=== PATIENT | male | born 1995 | race Caucasian/White ===

== ENCOUNTER 2020-12-16 22:12 | Emergency (ER) | payer SELFPAY ==
--- NOTE | ~2020-12-16 | XR_ITS ---
EXAMINATION: XR elbow RT 2V INDICATION: Right elbow pain TECHNIQUE: Two views of the right elbow are obtained. COMPARISON: None available FINDINGS: There is no fracture, dislocation, or subluxation. The bones, soft tissues, and joint space s are normal. IMPRESSION: 1. No acute osseous abnormality. Reviewed, dictated and finalized at location A. [employer]
[2020-12-16 22:14] VITALS: BP 111/91; PULSE 71; RESP 16; TEMP 36.7; O2SAT 98
--- NOTE | 2020-12-16 22:23 | ED.UPPEXIN ---
HPI - Extremity Injury (Upper) General Chief Complaint: Extremity Injury, Upper Stated Complaint: fall Time Seen by Provider: 12/16/20 22:22 Source: patient and EMS Mode of arrival: EMS History of Present Illness HPI narrative: Patient is 25 years old white male slipped on a wet floor, fell backward and broke his fall by his right elbow. Patient denies other injuries. Prior to arrival. At work. Review of Systems Review of Systems: Narrative: CONSTITUTIONAL: Denies fever, chills, or sweats. EYES: Denies visual changes, redness, or discharge. ENT: Denies rhinorrhea, congestion, sore throat, or otalgia. CARDIOVASCULAR: Denies chest pain, palpitations, or edema. RESPIRATORY: Denies cough or dyspnea. GASTROINTESTINAL: Denies abdominal pain, nausea, vomiting, or diarrhea. GENITOURINARY: Denies dysuria or hematuria. SKIN: Denies rash or itching. MUSCULOSKELETAL: Denies back pain, joint pain, or myalgia. NEUROLOGIC: Denies headache, numbness, or weakness. PSYCHIATRIC: Denies anxiety or depression. Exam Narrative: Exam Narrative: General appearance: Well-developed, well-nourished Skin: Normal color Head: Normocephalic, nontraumatic Neck: Supple, nontender Chest and respiratory: Airway patent, no respiratory distress, no accessory muscle use Heart: Regular rate/rhythm Vascular: Normal peripheral pulses, normal capillary refill. Musculoskeletal: Right elbow exam showed contusion posteriorly, severe limited range of motion, no deformity. 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, no gross motor deficit Course Course Emergency Course: Stable Vital Signs Vital signs: Vital Signs Temperature 36.7 C 12/16/20 22:14 Pulse Rate 71 12/16/20 22:14 Respiratory Rate 16 12/16/20 22:14 Blood Pressure 111/91 H 12/16/20 22:14 Pulse Oximetry 98 12/16/20 22:14 Temperature 36.7 C 12/16/20 22:14 Pulse Rate 71 12/16/20 22:14 Respiratory Rate 16 12/16/20 22:14 Blood Pressure 111/91 H 12/16/20 22:14 Pulse Oximetry 98 12/16/20 22:14 MDM - Extremity Injury (Upper) MDM Narrative Medical decision making narrative: Right elbow traumatic pain, x-ray ordered, further plan to follow Imaging Data My impression: No fracture or dislocation of the right elbow Critical Care Time Critical Care Time Critical Care Time: No Discharge Plan Discharge Clinical Impression: Contusion of elbow, right Qualifiers: Encounter type: subsequent encounter Qualified Code(s): S50.01XD - Contusion of right elbow, subsequent encounter Patient Disposition: Home, Self-Care Condition: Stable Instructions: Contusion in Adults (ED) Additional Instructions: Return if symptoms are worsening , call your family physician for appointment, take Tylenol as as needed for aches and pain, continue home medications. Take ibuprofen 600 every 6 hours as needed for pain. Off work today Stand Alone Forms: Work/School Release IP
[2020-12-16] MEDS: IBUPROFEN 600 MG TABLET PO (23:00)
[2020-12-16 23:35] VITALS: BP 115/80; PULSE 78; RESP 16; O2SAT 97
== END 2020-12-16 23:35 | disposition home or self-care (01) ==
PROVIDERS: Emergency Provider Emergency Medicine
DX: S50.01XA Contusion of right elbow, initial encounter (principal); W01.0XXA Fall on same level from slipping, tripping and stumbling without subsequent striking against object, initial encounter
CPT/HCPCS: 73070; 99283; A9270